=== PATIENT | male | born 1980 | race Caucasian/White ===

== ENCOUNTER 2023-11-16 14:49 | Emergency (ER) | payer OTHER ==
[~2023-11-16] VITALS: Ht 182.9 cm; Wt 81.6 kg
[2023-11-16 15:00] VITALS: O2SAT 99
== END 2023-11-16 18:59 | disposition left against medical advice (07) ==
LOC: ER 14:50
DX: S41.131A Puncture wound without foreign body of right upper arm, initial encounter (principal); Z53.21 Procedure and treatment not carried out due to patient leaving prior to being seen by health care provider; W64.XXXA Exposure to other animate mechanical forces, initial encounter; Y93.89 Activity, other specified; Y92.89 Other specified places as the place of occurrence of the external cause; Y99.8 Other external cause status
CPT/HCPCS: A4606; A4663